=== PATIENT | female | born 1955 | race American Indian/Alaskan Native ===

== ENCOUNTER 2018-05-27 17:57 | Emergency (ER) | payer BC ==
[2018-05-27 18:21] VITALS: BP 124/58
--- NOTE | 2018-05-27 19:26 | Emergency Department Report ---
ED Lower Extremity HPI - General Chief Complaint: Extremity Problem,Nontraumatic Stated Complaint: RIGHT KNEE PAIN Time Seen by Provider: 05/27/18 19:20 Source: patient Mode of arrival: Wheelchair Limitations: No Limitations - History of Present Illness Initial Comments: This is a 62-year-old -[place] female who presents with chronic right knee pain that increased today. Patient states she was walking down the street picking her grandson from school when she noticed swelling and pain to right medial knee. Patient states that she walked she felt tightness medial knee and increased swelling. Patient state she took tramadol with improvement in symptoms. Admits to past medical history of hypertension and diabetes. She is currently seeing an orthopedic surgeon at [facility]. She reports pain is 10 out of 10 on pain scale and worse with movement. It is sharp and excruciating pain. Patient states she is unable to fully extend or bend knee. She denies numbness or tingling, fever, erythema, recent injury. MD Complaint: knee injury (right) -: This evening Injury: Knee: Right Type of Injury: unknown Place: home Severity: severe Severity scale (0 -10): 10 Improves With: nothing Worsens With: weight bearing, movement Context: walking Associated Symptoms: swelling, unable to bear weight. denies: snap/pop sensation, numbness, tingling Treatments Prior to Arrival: other (prescribed pain medication) - Related Data Previous Rx's Medication Instructions Recorded Last Taken Type Acetaminophen/Codeine [Tylenol 1 tab PO Q6H PRN #8 tab 05/27/18 Unknown Rx /Codeine # 3 tab] methOCARBAMOL [Robaxin TAB] 500 mg PO BID #10 tab 05/27/18 Unknown Rx Allergies Allergy/AdvReac Type Severity Reaction Status Date / Time No Known Allergies Allergy Unverified 05/27/18 18:20 ED Review of Systems ROS: Stated complaint: RIGHT KNEE PAIN Other details as noted in HPI Constitutional: denies: chills, fever Respiratory: denies: cough, shortness of breath, wheezing Cardiovascular: denies: chest pain, palpitations Gastrointestinal: denies: abdominal pain, nausea, diarrhea Musculoskeletal: joint swelling (right knee), arthralgia (right knee). denies: back pain Skin: denies: rash, lesions Neurological: denies: headache, weakness, paresthesias Psychiatric: denies: anxiety, depression ED Past Medical Hx - Past Medical History Previous Medical History?: Yes Hx Hypertension: Yes Hx Diabetes: Yes - Social History Smoking Status: Current Every Day Smoker Substance Use Type: None - Medications Home Medications: Home Medications Medication Instructions Recorded Confirmed Last Taken Type Acetaminophen/Codeine [Tylenol 1 tab PO Q6H PRN #8 tab 05/27/18 Unknown Rx /Codeine # 3 tab] methOCARBAMOL [Robaxin TAB] 500 mg PO BID #10 tab 05/27/18 Unknown Rx ED Physical Exam - General Limitations: No Limitations General appearance: alert, in no apparent distress - Respiratory Respiratory exam: Present: normal lung sounds bilaterally. Absent: respiratory distress - Cardiovascular Cardiovascular Exam: Present: regular rate, normal rhythm. Absent: systolic murmur, diastolic murmur, rubs, gallop - GI/Abdominal GI/Abdominal exam: Present: soft, normal bowel sounds. Absent: organomegaly, mass - Expanded Lower Extremity Exam Right Hip exam: Present: normal inspection, full ROM Upper Leg exam: Present: normal inspection, full ROM Knee exam: Present: tenderness, swelling (medial patella), crepidus, effusion, pain w/ pronation/supination. Absent: full ROM (limited secondary swelling and pain), abrasion, laceration, ecchymosis, deformity, dislocation, erythema, posterior draw sign, full knee extension Lower Leg exam: Present: normal inspection, full ROM Ankle exam: Present: normal inspection, full ROM Foot/Toe exam: Present: normal inspection, full ROM Neuro vascular tendon exam: Present: no vascular compromise Gait: Positive: unable to bear weight - Neurological Exam Neurological exam: Present: alert, oriented X3 - Psychiatric Psychiatric exam: Present: normal affect, normal mood - Skin Skin exam: Present: warm, dry, intact, normal color. Absent: rash ED Course Vital Signs 05/27/18 18:18 Temperature 98.6 F Pulse Rate 91 H Respiratory 16 Rate Blood Pressure 124/58 O2 Sat by Pulse 99 Oximetry ED Lower Extremity MDM - Radiology Data Radiology results: report reviewed, image reviewed FINAL REPORT EXAM: XR KNEE 3V RT HISTORY: right knee pain and swelling medial TECHNIQUE: 3 views of right knee. PRIORS: None. FINDINGS: Mild medial and patellofemoral joint space narrowing and marginal spurring. No apparent fracture or dislocation. Soft tissues grossly unremarkable. IMPRESSION: 1. No acute osseous abnormality. 2. Degenerative changes. - Medical Decision Making Patient was examined by me. Vitals are normal and patient is in no acute distress. Obtained a urinalysis and x-ray of right knee. X-rays dictated by radiologist and report reviewed by myself. 1. No acute osseous abnormality. 2. Degenerative changes. Patient informed of results. Given knee immobilizer and crutches with education. Start tylenol #3 and robaxin for muscle strain. Referral to orthopedic surgery for continued care. Patient discharged home in stable condition. Follow up with PCP in 2-3 days. Critical care attestation.: If time is entered above; I have spent that time in minutes in the direct care of this critically ill patient, excluding procedure time. ED Disposition Clinical Impression: Right medial knee pain Muscle strain of right knee Qualifiers: Encounter type: initial encounter Qualified Code(s): S86.911A - Strain of unspecified muscle(s) and tendon(s) at lower leg level, right leg, initial encounter Degenerative arthritis of right knee Qualifiers: Osteoarthritis type: primary Qualified Code(s): M17.11 - Unilateral primary osteoarthritis, right knee Disposition: TO HOME OR SELFCARE Is pt being admited?: No Does the pt Need Aspirin: No Condition: Stable Instructions: Arthralgia (ED) Additional Instructions: Rest Use ice or heat on affected area for 20 minutes and off for 2 hours. Take pain medication as needed for pain. Don't drive or operate heavy machinery while taking muscle relaxers because they may cause drowsiness. Follow up with Primary Care Provider in 2-3 days. Prescriptions: Acetaminophen/Codeine [Tylenol /Codeine # 3 tab] 1 tab PO Q6H PRN #8 tab PRN Reason: Pain , Severe (7-10) methOCARBAMOL [Robaxin TAB] 500 mg PO BID #10 tab Referrals: LYNNE BELLE MD [Staff Physician] - 3-5 Days [facility] [Provider Group] - 3-5 Days [facility] [Outside] - 3-5 Days Time of Disposition: 20:31
[2018-05-27] MEDS ORDERED: NORCO 5/325 PO ONE (19:27)
--- NOTE | 2018-05-27 20:00 | XRay Report ---
FINAL REPORT EXAM: XR KNEE 3V RT HISTORY: right knee pain and swelling medial TECHNIQUE: 3 views of right knee. PRIORS: None. FINDINGS: Mild medial and patellofemoral joint space narrowing and marginal spurring. No apparent fracture or dislocation. Soft tissues grossly unremarkable. IMPRESSION: 1. No acute osseous abnormality. 2. Degenerative changes.
== END 2018-05-27 20:44 | disposition home or self-care (01) ==
LOC: ED 17:57
DX: S86.911A Strain of unspecified muscle(s) and tendon(s) at lower leg level, right leg, initial encounter (principal); I10 Essential (primary) hypertension; E11.9 Type 2 diabetes mellitus without complications; F17.200 Nicotine dependence, unspecified, uncomplicated; W18.39XA Other fall on same level, initial encounter; Y93.01 Activity, walking, marching and hiking; Y92.218 Other school as the place of occurrence of the external cause; Y99.8 Other external cause status